=== PATIENT | male | born 1955 | race Caucasian/White ===

== ENCOUNTER 2021-12-31 20:16 | Emergency (ER) | payer MEDICARE, OTHER ==
[2021-12-31 20:28] VITALS: RESP 18; TEMP 99
--- NOTE | 2021-12-31 20:46 | ED ---
General Adult HPI - General Chief complaint: Seizure Stated complaint: Seizure Time Seen by Provider: 12/31/21 20:35 Source: patient, family (daughter), EMS, RN notes reviewed, old records reviewed Mode of arrival: EMS Limitations: physical limitation - History of Present Illness Initial comments: 66-year-old male presents to the emergency room after having a seizure today witnessed by his daughter. Daughter at bedside states that the patient has been out of his seizure medications for a week. He has been out of all of his other medications for a month including his metoprolol, metformin, and Januvia. Patient denies any injuries or pain. Daughter states that she just needed someone to prescribe him his seizure medications. Severity scale (1-10): 0 Associated Symptoms: denies other symptoms - Related Data Home Medications Medication Instructions Recorded Confirmed Aspirin 81 mg PO DAILY 12/31/21 12/31/21 Atorvastatin [Lipitor] 80 mg PO DAILY 12/31/21 12/31/21 Cholecalciferol [Vitamin D3 (25 50 mcg PO DAILY 12/31/21 12/31/21 Mcg = 1000 Iu)] Melatonin [Melatonin Dissolving 5 mg PO HS 12/31/21 12/31/21 Tablet] Metoprolol Tartrate [Lopressor] 12.5 mg PO BID 12/31/21 12/31/21 Mirtazapine [Remeron] 15 mg PO HS 12/31/21 12/31/21 Topiramate [Topiramate ER] 200 mg PO DAILY 12/31/21 12/31/21 levETIRAcetam [Keppra] 1,500 mg PO Q12H 12/31/21 12/31/21 metFORMIN HCL [Glucophage] 500 mg PO BID 12/31/21 12/31/21 sitaGLIPtin [Januvia] 50 mg PO DAILY 12/31/21 12/31/21 Previous Rx's Medication Instructions Recorded levETIRAcetam [Keppra] 1,500 mg PO BID 30 Days #120 tab 12/31/21 Allergies Allergy/AdvReac Type Severity Reaction Status Date / Time No Known Allergies Allergy Verified 12/31/21 21:10 Review of Systems ROS Statement: Those systems with pertinent positive or pertinent negative responses have been documented in the HPI. ROS Other: All systems not noted in ROS Statement are negative. Past Medical History Past Medical History: CVA/TIA, Dementia, Diabetes Mellitus, Hyperlipidemia, Hypertension, Osteoarthritis (OA), Seizure Disorder Additional Past Medical History / Comment(s): Head injury. History of Any Multi-Drug Resistant Organisms: None Reported Past Surgical History: Unable to Obtain Smoking Status: Never smoker Past Alcohol Use History: Abuse Past Drug Use History: None Reported General Exam Limitations: physical limitation (Left-sided weakness from CVA) General appearance: alert, in no apparent distress Head exam: Present: atraumatic, normocephalic, normal inspection Eye exam: Present: normal appearance. Absent: scleral icterus, conjunctival injection, periorbital swelling, periorbital tenderness ENT exam: Present: normal exam, normal oropharynx, mucous membranes moist Neck exam: Present: normal inspection, full ROM. Absent: tenderness, meningismus Respiratory exam: Present: normal lung sounds bilaterally. Absent: respiratory distress, accessory muscle use Cardiovascular Exam: Present: regular rate GI/Abdominal exam: Present: soft. Absent: distended, tenderness Extremities exam: Present: normal capillary refill Neurological exam: Present: alert Expanded Patient oriented to: Present: person, place Speech: Present: fluid speech Cranial nerves: EOM's Intact: Normal, Gag Reflex: Normal, Tongue Deviation: Normal Motor strength exam: RUE: 5, LUE: 4, RLE: 5, LLE: 4 Eye Response: (4) open spontaneously Motor Response: (6) obeys commands Verbal Response: (5) oriented Saniya Total: 15 Psychiatric exam: Present: normal affect, normal mood Skin exam: Present: warm, dry, normal color. Absent: rash, cyanosis, di aphoretic, petechiae, pallor Course Vital Signs 12/31/21 12/31/21 20:20 22:43 Temperature 99.0 F Pulse Rate 79 73 Respiratory 18 18 Rate Blood Pressure 130/76 121/69 O2 Sat by Pulse 95 95 Oximetry Medical Decision Making - Medical Decision Making Patient does have a history of seizures and is out of medications. He is back to his normal baseline per family. He does have a history of stroke with left- sided weakness. He denies any headaches, injuries or pain. Patient was given IV Keppra for his Seizures and Prescribed Keppra based on previous prescription Dosing. he was Directed to Follow up with His Primary Care Doctor for the Continuation of His Other Medications and Return If any new concerns. Patient Is Agreeable to This Plan of Care. Case Discussed with Dr. Mcclendon - Lab Data Result diagrams: 12/31/21 21:09 12/31/21 21:09 Lab Results 12/31/21 12/31/21 12/31/21 Range/Units 21:09 21:09 21:09 WBC 6.6 (3.8-10.6) k/uL RBC 4.87 (4.30-5.90) m/uL Hgb 12.7 L (13.0-17.5) gm/dL Hct 38.8 L (39.0-53.0) % MCV 79.8 L (80.0-100.0) fL MCH 26.2 (25.0-35.0) pg MCHC 32.8 (31.0-37.0) g/dL RDW 14.8 (11.5-15.5) % Plt Count 105 L (150-450) k/uL MPV 9.2 Neutrophils % 73 % Lymphocytes % 16 % Monocytes % 6 % Eosinophils % 4 % Basophils % 0 % Neutrophils # 4.8 (1.3-7.7) k/uL Lymphocytes # 1.0 (1.0-4.8) k/uL Monocytes # 0.4 (0-1.0) k/uL Eosinophils # 0.3 (0-0.7) k/uL Basophils # 0.0 (0-0.2) k/uL Sodium 132 L (137-145) mmol/L Potassium 4.2 (3.5-5.1) mmol/L Chloride 101 (98-107) mmol/L Carbon Dioxide 21 L (22-30) mmol/L Anion Gap 10 mmol/L BUN 13 (9-20) mg/dL Creatinine 0.96 (0.66-1.25) mg/dL Est GFR (CKD-EPI)AfAm >90 (>60 ml/min/1.73 sqM) Est GFR (CKD-EPI)NonAf 83 (>60 ml/min/1.73 sqM) Glucose 267 H (74-99) mg/dL Calcium 9.2 (8.4-10.2) mg/dL Magnesium 1.9 (1.6-2.3) mg/dL Total Bilirubin 1.5 H (0.2-1.3) mg/dL AST 53 (17-59) U/L ALT 51 H (4-49) U/L Alkaline Phosphatase 163 H (38-126) U/L Total Protein 6.9 (6.3-8.2) g/dL Albumin 3.7 (3.5-5.0) g/dL Urine Color Urine Appearance (Clear) Urine pH (5.0-8.0) Ur Specific [place] (1.001-1.035) Urine Protein (Negative) Urine Glucose (UA) (Negative) Urine Ketones (Negative) Urine Blood (Negative) Urine Nitrite (Negative) Urine Bilirubin (Negative) Urine Urobilinogen (<2.0) mg/dL Ur Leukocyte Esterase (Negative) Urine RBC (0-5) /hpf Urine WBC (0-5) /hpf Hyaline Casts (0-2) /lpf Urine Mucus (None) /hpf Urine Opiates Screen (NotDetected) Ur Oxycodone Screen (NotDetected) Urine Methadone Screen (NotDetected) Ur Propoxyphene Screen (NotDetected) Ur Barbiturates Screen (NotDetected) U Tricyclic Antidepress (NotDetected) Ur Phencyclidine Scrn (NotDetected) Ur Amphetamines Screen (NotDetected) U Methamphetamines Scrn (NotDetected) U Benzodiazepines Scrn (NotDetected) Urine Cocaine Screen (NotDetected) U Marijuana (THC) Screen (NotDetected) 12/31/21 Range/Units 21:29 WBC (3.8-10.6) k/uL RBC (4.30-5.90) m/uL Hgb (13.0-17.5) gm/dL Hct (39.0-53.0) % MCV (80.0-100.0) fL MCH (25.0-35.0) pg MCHC (31.0-37.0) g/dL RDW (11.5-15.5) % Plt Count (150-450) k/uL MPV Neutrophils % % Lymphocytes % % Monocytes % % Eosinophils % % Basophils % % Neutrophils # (1.3-7.7) k/uL Lymphocytes # (1.0-4.8) k/uL Monocytes # (0-1.0) k/uL Eosinophils # (0-0.7) k/uL Basophils # (0-0.2) k/uL Sodium (137-145) mmol/L Potassium (3.5-5.1) mmol/L Chloride (98-107) mmol/L Carbon Dioxide (22-30) mmol/L Anion Gap mmol/L BUN (9-20) mg/dL Creatinine (0.66-1.25) mg/dL Est GFR (CKD-EPI)AfAm (>60 ml/min/1.73 sqM) Est GFR (CKD-EPI)NonAf (>60 ml/min/1.73 sqM) Glucose (74-99) mg/dL Calcium (8.4-10.2) mg/dL Magnesium (1.6-2.3) mg/dL Total Bilirubin (0.2-1.3) mg/dL AST (17-59) U/L ALT (4-49) U/L Alkaline Phosphatase (38-126) U/L Total Protein (6.3-8.2) g/dL Albumin (3.5-5.0) g/dL Urine Color Yellow Urine Appearance Clear (Clear) Urine pH 5.5 (5.0-8.0) Ur Specific [place] 1.014 (1.001-1.035) Urine Protein 1+ H (Negative) Urine Glucose (UA) 4+ H (Negative) Urine Ketones Trace H (Negative) Urine Blood Negative (Negative) Urine Nitrite Negative (Negative) Urine Bilirubin Negative (Negative) Urine Urobilinogen <2.0 (<2.0) mg/dL Ur Leukocyte Esterase Negative (Negative) Urine RBC 2 (0-5) /hpf Urine WBC 3 (0-5) /hpf Hyaline Casts 16 H (0-2) /lpf Urine Mucus Rare H (None) /hpf Urine Opiates Screen Not Detected (NotDetected) Ur Oxycodone Screen Not Detected (NotDetected) Urine Methadone Screen Not Detected (NotDetected) Ur Propoxyphene Screen Not Detected (NotDetected) Ur Barbiturates Screen Not Detected (NotDetected) U Tricyclic Antidepress Not Detected (NotDetected) Ur Phencyclidine Scrn Not Detected (NotDetected) Ur Amphetamines Screen Not Detected (NotDetected) U Methamphetamines Scrn Not Detected (NotDetected) U Benzodiazepines Scrn Not Detected (NotDetected) Urine Cocaine Screen Not Detected (NotDetected) U Marijuana (THC) Screen Not Detected (NotDetected) Disposition Clinical Impression: Seizure Disposition: HOME SELF-CARE Condition: Good Instructions (If sedation given, give patient instructions): Recurrent Seizures in Adults (ED) Additional Instructions: Take your seizure medications as prescribed and follow-up with your primary care doctor this week. Return to the emergency room with any new or concerning symptoms. Prescriptions: levETIRAcetam [Keppra] 1,500 mg PO BID 30 Days #120 tab Is patient prescribed a controlled substance at d/c from ED?: No Referrals: None,Stated [Primary Care Provider] - 1-2 days Time of Disposition: 22:24
[2021-12-31] MEDS: levETIRAcetam IV 1,500 MG in SALINE 1 100ML.BAG IVPB STA (21:10)
[2021-12-31] MEDS: SODIUM CHLORIDE 0.9% 1,000 ML IV STA (21:10)
[2021-12-31 21:25] LABS: Basophils % (A) 0 %; Eosinophils # (A) 0.3 k/uL (0-0.7); Eosinophils % (A) 4 %; HCT 38.8 % (39.0-53.0); HGB 12.7 gm/dL (13.0-17.5); Lymphocytes % (A) 16 %; MCH 26.2 pg (25.0-35.0); MCHC 32.8 g/dL (31.0-37.0); MCV 79.8 fL (80.0-100.0); Mean Platelet Volume 9.2; Monocytes # (A) 0.4 k/uL (0-1.0); Monocytes % (A) 6 %; Neutrophils # (A) 4.8 k/uL (1.3-7.7); Neutrophils % (A) 73 %; Platelet Count 105 k/uL (150-450); RBC 4.87 m/uL (4.30-5.90); RDW 14.8 % (11.5-15.5); WBC 6.6 k/uL (3.8-10.6)
[2021-12-31 21:32] LABS: ALT 51 U/L (4-49); African American GFR (CKD) >90 (>60 ml/min/1.73 sqM); Anion Gap 10 mmol/L; Blood Urea Nitrogen 13 mg/dL (9-20); Calcium 9.2 mg/dL (8.4-10.2); Carbon Dioxide 21 mmol/L (22-30); Chloride 101 mmol/L (98-107); Glucose 267 mg/dL (74-99); Non-African American GFR(CKD) 83 (>60 ml/min/1.73 sqM); Sodium 132 mmol/L (137-145); Total Bilirubin 1.5 mg/dL (0.2-1.3)
[2021-12-31 21:41] LABS: Albumin 3.7 g/dL (3.5-5.0); Potassium 4.2 mmol/L (3.5-5.1); Total Protein 6.9 g/dL (6.3-8.2)
[2021-12-31 21:42] LABS: AST 53 U/L (17-59); Alkaline Phosphatase 163 U/L (38-126)
[2021-12-31 22:05] LABS: Amphetamine Screen,Urine Not Detected (NotDetected); Barbiturate Screen,Urine Not Detected (NotDetected); Benzodiazepines Screen,Urine Not Detected (NotDetected); Cocaine Screen,Urine Not Detected (NotDetected); Methadone Screen, Urine Not Detected (NotDetected); Opiate Screen,Urine Not Detected (NotDetected); Oxycodone Screen, Urine Not Detected (NotDetected); Phencyclidine Screen,Urine Not Detected (NotDetected); Tricyclic Antidepressant,Urine Not Detected (NotDetected); Urn Cannabinoid Scrn Not Detected (NotDetected)
[2021-12-31 22:09] LABS: Appearance,Urine Clear (Clear); Bilirubin,Urine Negative (Negative); Blood,Urine Negative (Negative); Color,Urine Yellow; Glucose,Urine (UA) 4+ (Negative); Hyaline Casts,Urine 16 /lpf (0-2); Ketones,Urine Trace (Negative); Leukocyte Esterase,Urine Negative (Negative); Mucus,Urine Rare /hpf; Nitrite,Urine Negative (Negative); PH, Urine 5.5 (5.0-8.0); Protein,Urine 1+ (Negative); RBC,Urine 2 /hpf (0-5); Specific Gravity,Urine 1.014 (1.001-1.035); Urobilinogen,Urine <2.0 mg/dL (<2.0); WBC,Urine 3 /hpf (0-5)
[2021-12-31 22:45] VITALS: BP 121/69; PULSE 73
== END 2021-12-31 22:49 | disposition home or self-care (01) ==
LOC: EC 20:16
DX: R56.9 Unspecified convulsions (principal); E11.9 Type 2 diabetes mellitus without complications; I10 Essential (primary) hypertension
CPT/HCPCS: 36415; 80053; 83735; 85025; 81001; 80306; 99285; 96365; 96361; J1953

== ENCOUNTER 2022-02-04 11:01 | Emergency (ER) | payer MEDICARE, OTHER ==
[2022-02-04 14:19] VITALS: BP 156/84; PULSE 68; RESP 18; TEMP 98.5
--- NOTE | 2022-02-04 14:22 | ED ---
General Adult HPI - General Chief complaint: Recheck/Abnormal Lab/Rx Stated complaint: med refill Time Seen by Provider: 02/04/22 13:31 Source: patient Mode of arrival: ambulatory Limitations: no limitations - History of Present Illness Initial comments: 66-year-old male presents to the emergency room for a chief complaint of medication refill. Patient has a seizure disorder. They recently moved to the area and he no longer has a neurologist. Usually on The 1500 mg twice daily. Daughter is requesting a refill for his medication. They are trying to get him into a neurologist. He has not had any seizures within the past month.Patient has no other complaints at this time including shortness of breath, chest pain, abdominal pain, nausea or vomiting, headache, or visual changes. - Related Data Home Medications Medication Instructions Recorded Confirmed Aspirin 81 mg PO DAILY 12/31/21 12/31/21 Atorvastatin [Lipitor] 80 mg PO DAILY 12/31/21 12/31/21 Cholecalciferol [Vitamin D3 (25 50 mcg PO DAILY 12/31/21 12/31/21 Mcg = 1000 Iu)] Melatonin [Melatonin Dissolving 5 mg PO HS 12/31/21 12/31/21 Tablet] Metoprolol Tartrate [Lopressor] 12.5 mg PO BID 12/31/21 12/31/21 Mirtazapine [Remeron] 15 mg PO HS 12/31/21 12/31/21 Topiramate [Topiramate ER] 200 mg PO DAILY 12/31/21 12/31/21 levETIRAcetam [Keppra] 1,500 mg PO Q12H 12/31/21 12/31/21 metFORMIN HCL [Glucophage] 500 mg PO BID 12/31/21 12/31/21 sitaGLIPtin [Januvia] 50 mg PO DAILY 12/31/21 12/31/21 Previous Rx's Medication Instructions Recorded levETIRAcetam [Keppra] 1,500 mg PO BID 30 Days #120 tab 02/04/22 Allergies Allergy/AdvReac Type Severity Reaction Status Date / Time No Known Allergies Allergy Verified 02/04/22 11:06 Review of Systems ROS Statement: Those systems with pertinent positive or pertinent negative responses have been documented in the HPI. ROS Other: All systems not noted in ROS Statement are negative. Past Medical History Past Medical History: CVA/TIA, Dementia, Diabetes Mellitus, Hyperlipidemia, Hypertension, Osteoarthritis (OA), Seizure Disorder Additional Past Medical History / Comment(s): Head injury. History of Any Multi-Drug Resistant Organisms: None Reported Past Surgical History: Unable to Obtain Past Psychological History: No Psychological Hx Reported Smoking Status: Never smoker Past Alcohol Use History: Abuse Past Drug Use History: None Reported General Exam Limitations: no limitations General appearance: alert, in no apparent distress Head exam: Present: atraumatic Eye exam: Present: normal appearance, PERRL, EOMI. Absent: scleral icterus, conjunctival injection ENT exam: Present: normal exam, mucous membranes moist Neck exam: Present: normal inspection, full ROM. Absent: tenderness Respiratory exam: Present: normal lung sounds bilaterally. Absent: respiratory distress, wheezes Cardiovascular Exam: Present: normal rhythm, normal heart sounds. Absent: regular rate GI/Abdominal exam: Present: soft, normal bowel sounds. Absent: distended, tenderness Neurological exam: Present: alert Course Vital Signs 02/04/22 11:05 Temperature 98.2 F Pulse Rate 67 Respiratory 20 Rate Blood Pressure 154/81 O2 Sat by Pulse 98 Oximetry Medical Decision Making - Medical Decision Making Medications are verified. Patient was given a refill but strongly encouraged to follow up with a neurologist as soon as possible. He will return here for any worsening symptoms. Disposition Clinical Impression: Encounter for medication refill Disposition: HOME SELF-CARE Condition: Good Instructions (If sedation given, give patient instructions): Medicine Refill (ED) Additional Instructions: Please follow up with neurology in 1-2 days. Return to the ER for any worsening symptoms. Prescriptions: levETIRAcetam [Keppra] 1,500 mg PO BID 30 Days #120 tab Is patient prescribed a controlled substance at d/c from ED?: No Referrals: Abiodun Wong DO [STAFF PHYSICIAN] - 1-2 days Alesha Collado MD [Medical Doctor] - 1-2 days Time of Disposition: 14:25
== END 2022-02-04 15:33 | disposition home or self-care (01) ==
LOC: EC 11:01
DX: Z76.0 Encounter for issue of repeat prescription (principal); I10 Essential (primary) hypertension; E11.9 Type 2 diabetes mellitus without complications; E78.5 Hyperlipidemia, unspecified; Z86.73 Personal history of transient ischemic attack (TIA), and cerebral infarction without residual deficits; Z79.82 Long term (current) use of aspirin; Z79.899 Other long term (current) drug therapy; Z79.84 Long term (current) use of oral hypoglycemic drugs
CPT/HCPCS: 99281

== ENCOUNTER 2022-03-17 15:41 | Emergency (ER) | payer MEDICARE, OTHER ==
[2022-03-17] MEDS ORDERED: SODIUM CHLORIDE 0.9% 500 ML 500 ML IV STA (15:42)
--- NOTE | 2022-03-17 15:46 | ED ---
General Adult HPI - General Stated complaint: Seizure Time Seen by Provider: 03/17/22 15:42 Source: patient, family, RN notes reviewed, old records reviewed Limitations: altered mental status - History of Present Illness Initial comments: 66 yo male with history of previous CVA with residual left-sided deficits and seizure disorder on Keppra had initially presented to the emergency department for refill of his Risperdal. 2 days. He did seize in the car just upon arrival lasting several minutes. He was brought immediately into the emergency department in a postictal state. He is able to answer some simple questions and follow simple commands - Related Data Home Medications Medication Instructions Recorded Confirmed Aspirin 81 mg PO DAILY 12/31/21 12/31/21 Atorvastatin [Lipitor] 80 mg PO DAILY 12/31/21 12/31/21 Cholecalciferol [Vitamin D3 (25 50 mcg PO DAILY 12/31/21 12/31/21 Mcg = 1000 Iu)] Melatonin [Melatonin Dissolving 5 mg PO HS 12/31/21 12/31/21 Tablet] Metoprolol Tartrate [Lopressor] 12.5 mg PO BID 12/31/21 12/31/21 Mirtazapine [Remeron] 15 mg PO HS 12/31/21 12/31/21 Topiramate [Topiramate ER] 200 mg PO DAILY 12/31/21 12/31/21 levETIRAcetam [Keppra] 1,500 mg PO Q12H 12/31/21 12/31/21 metFORMIN HCL [Glucophage] 500 mg PO BID 12/31/21 12/31/21 sitaGLIPtin [Januvia] 50 mg PO DAILY 12/31/21 12/31/21 Previous Rx's Medication Instructions Recorded levETIRAcetam [Keppra] 1,500 mg PO BID 30 Days #120 tab 02/04/22 levETIRAcetam [Keppra] 1,500 mg PO Q12HR #120 tab 03/17/22 Allergies Allergy/AdvReac Type Severity Reaction Status Date / Time No Known Allergies Allergy Verified 02/04/22 11:06 Review of Systems ROS Statement: Those systems with pertinent positive or pertinent negative responses have been documented in the HPI. ROS Other: All systems not noted in ROS Statement are negative. Past Medical History Past Medical History: CVA/TIA, Dementia, Diabetes Mellitus, Hyperlipidemia, Hypertension, Osteoarthritis (OA), Seizure Disorder Additional Past Medical History / Comment(s): Head injury. History of Any Multi-Drug Resistant Organisms: None Reported Past Surgical History: Unable to Obtain Past Psychological History: No Psychological Hx Reported Smoking Status: Never smoker Past Alcohol Use History: Abuse Past Drug Use History: None Reported General Exam General appearance: lethargic Head exam: Present: atraumatic, normocephalic Eye exam: Present: normal appearance, PERRL ENT exam: Present: normal exam Neck exam: Present: normal inspection. Absent: tenderness, meningismus Respiratory exam: Present: normal lung sounds bilaterally. Absent: respiratory distress Cardiovascular Exam: Present: regular rate, normal rhythm GI/Abdominal exam: Present: soft. Absent: distended, tenderness, guarding Extremities exam: Present: normal inspection, normal capillary refill. Absent: calf tenderness Neurological exam: Present: motor sensory deficit (Left-sided hemiparesis). Absent: alert, oriented X3 Skin exam: Present: warm, diaphoretic Course Vital Signs 03/17/22 15:46 Temperature 99.4 F Pulse Rate 84 Respiratory 20 Rate Blood Pressure 134/69 O2 Sat by Pulse 98 Oximetry EKG Findings - EKG Comments: EKG Findings:: EKG: Sinus rhythm rate of 77, DC interval 191, QRS duration 89, QTC 379. No ST segment elevation. Medical Decision Making - Medical Decision Making 60 sexual male who had initially presented by private vehicle for refill of Keppra who actually had seizure upon arrival. This was tonic-clonic, witnessed by staff. He was brought immediately in for evaluation. He initially had left- sided weakness and was hemiplegic. He has a previous history of CVA and does have residual symptoms however he is ambulatory at baseline. Head CT was performed which showed encephalomalacia in the right hemisphere without acute findings. He had a mild leukocytosis, CO2 was 16 which is low secondary to seizure. Otherwise laboratory testing is unremarkable. He is loaded with IV Keppra while in the emergency department. He is given a refill of his prescription. - Lab Data Result diagrams: 03/17/22 15:49 03/17/22 15:49 Lab Results 03/17/22 03/17/22 Range/Units 15:49 15:49 WBC 11.3 H (3.8-10.6) k/uL RBC 5.65 (4.30-5.90) m/uL Hgb 14.2 (13.0-17.5) gm/dL Hct 44.9 (39.0-53.0) % MCV 79.5 L (80.0-100.0) fL MCH 25.1 (25.0-35.0) pg MCHC 31.6 (31.0-37.0) g/dL RDW 15.4 (11.5-15.5) % Plt Count 160 (150-450) k/uL MPV 8.5 Neutrophils % 59 % Lymphocytes % 30 % Monocytes % 5 % Eosinophils % 2 % Basophils % 0 % Neutrophils # 6.7 (1.3-7.7) k/uL Lymphocytes # 3.4 (1.0-4.8) k/uL Monocytes # 0.6 (0-1.0) k/uL Eosinophils # 0.2 (0-0.7) k/uL Basophils # 0.0 (0-0.2) k/uL Sodium 138 (137-145) mmol/L Potassium 4.3 (3.5-5.1) mmol/L Chloride 104 (98-107) mmol/L Carbon Dioxide 16 L (22-30) mmol/L Anion Gap 18 mmol/L BUN 13 (9-20) mg/dL Creatinine 1.04 (0.66-1.25) mg/dL Est GFR (CKD-EPI)AfAm 87 (>60 ml/min/1.73 sqM) Est GFR (CKD-EPI)NonAf 75 (>60 ml/min/1.73 sqM) Glucose 202 H (74-99) mg/dL Calcium 9.8 (8.4-10.2) mg/dL Magnesium 2.1 (1.6-2.3) mg/dL Total Bilirubin 1.4 H (0.2-1.3) mg/dL AST 39 (17-59) U/L ALT 42 (4-49) U/L Alkaline Phosphatase 130 H (38-126) U/L Total Protein 8.4 H (6.3-8.2) g/dL Albumin 5.0 (3.5-5.0) g/dL Disposition Clinical Impression: Generalized seizure Disposition: HOME SELF-CARE Condition: Fair Instructions (If sedation given, give patient instructions): Recurrent Seizures in Adults (ED), Seizure/Epilepsy Discharge Instructions & Follow-Up Prescriptions: levETIRAcetam [Keppra] 1,500 mg PO Q12HR #120 tab Is patient prescribed a controlled substance at d/c from ED?: No Referrals: None,Stated [Primary Care Provider] - 1-2 days Time of Disposition: 16:29
[2022-03-17] MEDS ORDERED: levETIRAcetam IV 1,500 MG in SALINE 1 100ML.BAG IVPB STA (15:51)
[2022-03-17 16:09] LABS: Basophils % (A) 0 %; Eosinophils # (A) 0.2 k/uL (0-0.7); Eosinophils % (A) 2 %; HCT 44.9 % (39.0-53.0); HGB 14.2 gm/dL (13.0-17.5); Lymphocytes # (A) 3.4 k/uL (1.0-4.8); Lymphocytes % (A) 30 %; MCH 25.1 pg (25.0-35.0); MCHC 31.6 g/dL (31.0-37.0); MCV 79.5 fL (80.0-100.0); Mean Platelet Volume 8.5; Monocytes # (A) 0.6 k/uL (0-1.0); Monocytes % (A) 5 %; Neutrophils # (A) 6.7 k/uL (1.3-7.7); Neutrophils % (A) 59 %; Platelet Count 160 k/uL (150-450); RBC 5.65 m/uL (4.30-5.90); RDW 15.4 % (11.5-15.5); WBC 11.3 k/uL (3.8-10.6)
[2022-03-17 16:12] LABS: Calcium 9.8 mg/dL (8.4-10.2); Magnesium 2.1 mg/dL (1.6-2.3); Potassium 4.3 mmol/L (3.5-5.1); Total Bilirubin 1.4 mg/dL (0.2-1.3); Total Protein 8.4 g/dL (6.3-8.2)
--- NOTE | 2022-03-17 16:17 | CT ---
EXAMINATION TYPE: CT brain wo con DATE OF EXAM: 03/17/2022 COMPARISON: None available HISTORY: Seizures CT DLP: 1068.4 mGycm Automated exposure control for dose reduction was used. TECHNIQUE: CT scan of the brain is performed without IV contrast administration. FINDINGS: Right frontal, temporal, and superior frontoparietal areas of encephalomalacia with volume loss of th e right cerebral hemisphere and exvacuodilatation of the right lateral ventricle, please correlate wi th previous unavailable images. This could be related to sequela of previous infarcts, trauma, or collin gical intervention. Brain volume loss changes more than expected for the patient's age. Arterial athe rosclerotic calcifications. No acute intracranial hemorrhage. No gross acute cortical infarct. No midline shift or herniation. Un remarkable basal cisterns, sella and CP angles. No gross space-occupying lesion or mass effect. Unremarkable orbits. Clear visualized paranasal sinuses and mastoid air cells. Osteopenia. Previous r ight frontoparietal craniotomy. IMPRESSION: No acute intracranial hemorrhage or gross space-occupying lesion by this nonenhanced CT scan. Chronic findings as described above. If seizures persist, further MRI assessment should be considered.
[2022-03-17 16:34] VITALS: BP 134/78; PULSE 82; RESP 16; TEMP 98.6
== END 2022-03-17 16:42 | disposition home or self-care (01) ==
LOC: EC 15:41
DX: R56.9 Unspecified convulsions (principal); I10 Essential (primary) hypertension; E11.9 Type 2 diabetes mellitus without complications; Z86.73 Personal history of transient ischemic attack (TIA), and cerebral infarction without residual deficits
CPT/HCPCS: 36415; 93005; 80053; 83735; 85025; 70450; 99285; 96365; J1953

== ENCOUNTER 2022-05-16 17:34 | Emergency (ER) | payer MEDICARE, OTHER ==
[2022-05-16 18:20] VITALS: BP 120/70; PULSE 58; RESP 22; TEMP 98
--- NOTE | 2022-05-16 18:35 | ED ---
General Adult HPI - General Chief complaint: Recheck/Abnormal Lab/Rx Stated complaint: need meds Time Seen by Provider: 05/16/22 18:25 Source: patient, family (maryse), RN notes reviewed, old records reviewed Mode of arrival: ambulatory Limitations: no limitations - History of Present Illness Initial comments: Patient presents with his son-in-law requesting a refill on his Keppra prescription. States he is on his last pill. He tried to schedule to see Dr. Blanchard however was told he is not accepting new patients. They are working on getting a new primary care doctor in the area but they do not want him to run out of seizure medications and have another seizure. Patient has no complaints Severity scale (1-10): 0 - Related Data Home Medications Medication Instructions Recorded Confirmed Aspirin 81 mg PO DAILY 12/31/21 12/31/21 Atorvastatin [Lipitor] 80 mg PO DAILY 12/31/21 12/31/21 Cholecalciferol [Vitamin D3 (25 50 mcg PO DAILY 12/31/21 12/31/21 Mcg = 1000 Iu)] Melatonin [Melatonin Dissolving 5 mg PO HS 12/31/21 12/31/21 Tablet] Metoprolol Tartrate [Lopressor] 12.5 mg PO BID 12/31/21 12/31/21 Mirtazapine [Remeron] 15 mg PO HS 12/31/21 12/31/21 Topiramate [Topiramate ER] 200 mg PO DAILY 12/31/21 12/31/21 levETIRAcetam [Keppra] 1,500 mg PO Q12H 12/31/21 12/31/21 metFORMIN HCL [Glucophage] 500 mg PO BID 12/31/21 12/31/21 sitaGLIPtin [Januvia] 50 mg PO DAILY 12/31/21 12/31/21 Previous Rx's Medication Instructions Recorded levETIRAcetam [Keppra] 1,500 mg PO BID 30 Days #120 tab 02/04/22 levETIRAcetam [Keppra] 1,500 mg PO Q12HR #120 tab 05/16/22 Allergies Allergy/AdvReac Type Severity Reaction Status Date / Time No Known Allergies Allergy Verified 05/16/22 18:20 Review of Systems ROS Statement: Those systems with pertinent positive or pertinent negative responses have been documented in the HPI. ROS Other: All systems not noted in ROS Statement are negative. Past Medical History Past Medical History: CVA/TIA, Dementia, Diabetes Mellitus, Hyperlipidemia, Hypertension, Osteoarthritis (OA), Seizure Disorder Additional Past Medical History / Comment(s): Head injury. History of Any Multi-Drug Resistant Organisms: None Reported Past Surgical History: Unable to Obtain Past Psychological History: No Psychological Hx Reported Smoking Status: Never smoker Past Alcohol Use History: Abuse Past Drug Use History: None Reported General Exam Limitations: no limitations, physical limitation (left arm paresis from CVA) General appearance: alert, in no apparent distress Head exam: Present: atraumatic Eye exam: Absent: scleral icterus, conjunctival injection, periorbital swelling Neck exam: Absent: tenderness, meningismus Respiratory exam: Absent: respiratory distress, accessory muscle use Cardiovascular Exam: Present: bradycardia Neurological exam: Present: alert, oriented X3 Psychiatric exam: Present: normal affect, normal mood Skin exam: Present: warm, dry, normal color. Absent: cyanosis, diaphoretic, petechiae, pallor Course Vital Signs 05/16/22 18:18 Temperature 98.0 F Pulse Rate 58 L Respiratory 22 Rate Blood Pressure 120/70 O2 Sat by Pulse 99 Oximetry Medical Decision Making - Medical Decision Making Patient presents for a refill on his Keppra for seizures. He denies any complaints. He does not have a primary care doctor at this time [place] [facility] Vital signs are stable. He is alert and oriented. 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 No recent seizures. No headache, no pain. Patient was prescribed his Keppra 1500 mg twice a day. I did explain to them the importance of having a primary care doctor for follow- up for his chronic health conditions. They state understanding. Case discussed with Dr. Fajardo. Disposition Clinical Impression: Encounter for medication refill Disposition: HOME SELF-CARE Condition: Good Additional Instructions: Take medications as prescribed. Return to the emergency room with a new or concerning symptoms. It is important to obtain a primary care doctor to manage your chronic health conditions. Prescriptions: levETIRAcetam [Keppra] 1,500 mg PO Q12HR #120 tab Is patient prescribed a controlled substance at d/c from ED?: No Referrals: Williams Blanchard MD [Primary Care Provider] - 1-2 days Krish Arnold MD [REFERRING] - 1-2 days Time of Disposition: 18:32
== END 2022-05-16 19:13 | disposition home or self-care (01) ==
LOC: EC 17:34
DX: Z76.0 Encounter for issue of repeat prescription (principal); G40.909 Epilepsy, unspecified, not intractable, without status epilepticus; E11.9 Type 2 diabetes mellitus without complications; I10 Essential (primary) hypertension; E78.5 Hyperlipidemia, unspecified; F03.90 Unspecified dementia, unspecified severity, without behavioral disturbance, psychotic disturbance, mood disturbance, and anxiety; M19.90 Unspecified osteoarthritis, unspecified site; Z86.73 Personal history of transient ischemic attack (TIA), and cerebral infarction without residual deficits; Z79.82 Long term (current) use of aspirin; Z79.84 Long term (current) use of oral hypoglycemic drugs; Z79.899 Other long term (current) drug therapy
CPT/HCPCS: 99282

== ENCOUNTER 2022-07-16 11:27 | Emergency (ER) | payer MEDICARE, OTHER ==
[2022-07-16 11:47] VITALS: BP 132/79; PULSE 69; RESP 18; TEMP 98.9
--- NOTE | 2022-07-16 12:16 | ED ---
General Adult HPI - General Chief complaint: Recheck/Abnormal Lab/Rx Stated complaint: epileptic,needs med refill Time Seen by Provider: 07/16/22 11:49 Source: patient, family, RN notes reviewed Mode of arrival: wheelchair Limitations: no limitations - History of Present Illness Initial comments: 76-year-old male presents emergency department for medication refill. Patient states she has a history of seizures has been unable to follow-up with PCP as he loss his original PCP. Patient states he has epilepsy and states he is on 1500 mg of Keppra twice daily. Patient offers no other complaints. - Related Data Home Medications Medication Instructions Recorded Confirmed Aspirin 81 mg PO DAILY 12/31/21 12/31/21 Atorvastatin [Lipitor] 80 mg PO DAILY 12/31/21 12/31/21 Cholecalciferol [Vitamin D3 (25 50 mcg PO DAILY 12/31/21 12/31/21 Mcg = 1000 Iu)] Melatonin [Melatonin Dissolving 5 mg PO HS 12/31/21 12/31/21 Tablet] Metoprolol Tartrate [Lopressor] 12.5 mg PO BID 12/31/21 12/31/21 Mirtazapine [Remeron] 15 mg PO HS 12/31/21 12/31/21 Topiramate [Topiramate ER] 200 mg PO DAILY 12/31/21 12/31/21 levETIRAcetam [Keppra] 1,500 mg PO Q12H 12/31/21 12/31/21 metFORMIN HCL [Glucophage] 500 mg PO BID 12/31/21 12/31/21 sitaGLIPtin [Januvia] 50 mg PO DAILY 12/31/21 12/31/21 Previous Rx's Medication Instructions Recorded levETIRAcetam [Keppra] 1,500 mg PO BID 30 Days #120 tab 02/04/22 levETIRAcetam [Keppra] 1,500 mg PO Q12HR #120 tab 07/16/22 Allergies Allergy/AdvReac Type Severity Reaction Status Date / Time No Known Allergies Allergy Verified 07/16/22 11:45 Review of Systems ROS Statement: Those systems with pertinent positive or pertinent negative responses have been documented in the HPI. ROS Other: All systems not noted in ROS Statement are negative. Past Medical History Past Medical History: CVA/TIA, Dementia, Diabetes Mellitus, Hyperlipidemia, Hypertension, Osteoarthritis (OA), Seizure Disorder Additional Past Medical History / Comment(s): Head injury. History of Any Multi-Drug Resistant Organisms: None Reported Past Surgical History: Unable to Obtain Past Psychological History: No Psychological Hx Reported Smoking Status: Never smoker Past Alcohol Use History: Abuse Past Drug Use History: None Reported General Exam Limitations: no limitations General appearance: alert, in no apparent distress Head exam: Present: atraumatic, normocephalic, normal inspection Eye exam: Present: normal appearance, PERRL, EOMI. Absent: scleral icterus, conjunctival injection, periorbital swelling ENT exam: Present: normal exam, normal oropharynx, mucous membranes moist Neck exam: Present: normal inspection, full ROM. Absent: tenderness, meningismus, lymphadenopathy Respiratory exam: Present: normal lung sounds bilaterally. Absent: respiratory distress, wheezes, rales, rhonchi, stridor Cardiovascular Exam: Present: regular rate, normal rhythm, normal heart sounds. Absent: systolic murmur, diastolic murmur, rubs, gallop, clicks Course Vital Signs 07/16/22 11:45 Temperature 98.9 F Pulse Rate 69 Respiratory 18 Rate Blood Pressure 132/79 O2 Sat by Pulse 98 Oximetry Medical Decision Making - Medical Decision Making patient has history of seizure be given medication refill advised that needs follow-up PCP the Disposition Clinical Impression: Encounter for medication refill, History of seizure Disposition: HOME SELF-CARE Condition: Stable Additional Instructions: Please return to the Emergency Department if symptoms worsen or any other concerns. Prescriptions: levETIRAcetam [Keppra] 1,500 mg PO Q12HR #120 tab Is patient prescribed a controlled substance at d/c from ED?: No Referrals: Williams Blanchard MD [Primary Care Provider] - 1-2 days Time of Disposition: 12:16
== END 2022-07-16 12:24 | disposition home or self-care (01) ==
LOC: EC 11:27
DX: Z76.0 Encounter for issue of repeat prescription (principal); I10 Essential (primary) hypertension; E11.9 Type 2 diabetes mellitus without complications; E78.5 Hyperlipidemia, unspecified; M19.90 Unspecified osteoarthritis, unspecified site; G40.909 Epilepsy, unspecified, not intractable, without status epilepticus; G45.9 Transient cerebral ischemic attack, unspecified; F10.129 Alcohol abuse with intoxication, unspecified; Z86.69 Personal history of other diseases of the nervous system and sense organs; Z79.02 Long term (current) use of antithrombotics/antiplatelets; Z79.84 Long term (current) use of oral hypoglycemic drugs; Z79.811 Long term (current) use of aromatase inhibitors; Z79.899 Other long term (current) drug therapy
CPT/HCPCS: 99281